=== PATIENT | male | born 1950 ===

== ENCOUNTER 2020-09-08 07:11 | Outpatient (CLI) | payer OTHER | END 2020-09-08 07:14 | disposition home or self-care (01) | LOC: LAB 07:11 | PROVIDERS: ATTEND Emergency Medicine Pediatric Emergency Medicine | DX: Z03.818 Encounter for observation for suspected exposure to other biological agents ruled out (principal) ==

== ENCOUNTER 2020-10-06 08:27 | Outpatient (CLI) | payer OTHER | END 2020-10-06 08:28 | disposition home or self-care (01) | LOC: LAB 08:27 | PROVIDERS: ATTEND Emergency Medicine Pediatric Emergency Medicine | DX: Z03.818 Encounter for observation for suspected exposure to other biological agents ruled out (principal) ==

== ENCOUNTER 2020-10-24 07:03 | Outpatient (CLI) | payer OTHER | END 2020-10-24 07:04 | disposition home or self-care (01) | LOC: LAB 07:03 | PROVIDERS: ATTEND Emergency Medicine Pediatric Emergency Medicine | DX: Z03.818 Encounter for observation for suspected exposure to other biological agents ruled out (principal) ==

== ENCOUNTER 2020-10-27 07:45 | Outpatient (CLI) | payer OTHER | END 2020-10-27 07:46 | disposition home or self-care (01) | LOC: LAB 07:45 | PROVIDERS: ATTEND Emergency Medicine Pediatric Emergency Medicine | DX: Z03.818 Encounter for observation for suspected exposure to other biological agents ruled out (principal) ==